=== PATIENT | female | born 1970 | race Caucasian/White ===

== ENCOUNTER → 2020-12-19 | Outpatient (CLI) | payer BC ==
--- NOTE | 2020-12-19 17:13 | CT ---
EXAMINATION TYPE: CT abdomen pelvis wo con DATE OF EXAM: 12/19/2020 COMPARISON: None available. HISTORY: LLQ pain CT DLP: 1175.7 mGycm Automated exposure control for dose reduction was used. TECHNIQUE: Helical acquisition of images was performed from the lung bases through the pelvis. FINDINGS: LUNG BASES: No significant abnormality is appreciated. LIVER/GB: No significant abnormality is appreciated. Cholecystectomy. PANCREAS: No significant abnormality is seen. SPLEEN: No significant abnormality is seen. ADRENALS: No significant abnormality is seen. KIDNEYS: No significant abnormality is seen. FREE AIR: No free air is visualized RETROPERITONEAL ADENOPATHY: None visualized REPRODUCTIVE ORGANS: No significant abnormality is seen URINARY BLADDER: No significant abnormality is seen. PELVIC ADENOPATHY: None visualized. OSSEOUS STRUCTURES: No significant abnormality is seen. BOWEL: No significant abnormality is seen. Gastric bypass. OTHER: None. IMPRESSION: NO ACUTE ABNORMALITY. PRIOR POSTSURGICAL CHANGES ABOVE.
== END | disposition home or self-care (01) ==
LOC: RADCTMAIN 16:40
PROVIDERS: ATTEND Nurse Practitioner Adult Health
DX: R10.32 Left lower quadrant pain (principal); Z98.84 Bariatric surgery status; Z90.49 Acquired absence of other specified parts of digestive tract
CPT/HCPCS: 74176

== ENCOUNTER → 2021-01-17 | Outpatient (CLI) | payer BC ==
--- NOTE | 2021-01-17 15:37 | US ---
EXAMINATION TYPE: US thyroid st tissue head/neck DATE OF EXAM: 01/17/2021 COMPARISON: NONE CLINICAL HISTORY: R09.89 Sensation of foreign body in throat. Patient states she feels something in h er throat. GLAND SIZE: Right Lobe: 4.6 x 1.7 x 1.2 cm Overall Parenchyma: homogenous Left Lobe: 4.7 x1.6 x 0.9 cm Overall Parenchyma: homogeneous Isthmus Thickness: 0.1 cm NODULES RIGHT: # of nodules measured on right: 0 LEFT: # of nodules measured on left: 1 1. 0.6 X 0.4 x 0.3 cm, upper , cystic or almost completely cystic, anechoic nodule, which is wider than tall, with smooth margins, without echogenic foci. Prior size: no prior ISTHMUS: # of nodules measured in the isthmus: 0 Bilateral neck scanned, no evidence of lymphadenopathy. IMPRESSION: Nonspecific subcentimeter nodule left thyroid lobe.
== END | disposition home or self-care (01) ==
LOC: RADUSWWP 12:48
PROVIDERS: ATTEND Family Medicine
DX: E04.1 Nontoxic single thyroid nodule (principal)
CPT/HCPCS: 76536

== ENCOUNTER → 2021-09-20 | Outpatient (CLI) | payer BC ==
[~2021-09-20] MED LIST: CASIRIVIMAB (REGN10933) (EUA) 600 MG, IMDEVIMAB (REGN10987) (EUA) 600 MG in SODIUM CHLO... IVPB ONE; SODIUM CHLORIDE 0.9% 50 ML IVPB ONE; SODIUM CHLORIDE 0.9% 500 ML 500 ML in EMPTY BAG 1 BAG IV PRN
[2021-09-20 14:11] VITALS: BP 126/67; PULSE 53; RESP 16; TEMP 98.3
== END ==
LOC: PROCWHC3 13:42
PROVIDERS: ATTEND Nurse Practitioner Adult Health
DX: U07.1 COVID-19 (principal); E66.9 Obesity, unspecified; Z68.35 Body mass index [BMI] 35.0-35.9, adult; F17.200 Nicotine dependence, unspecified, uncomplicated; Z88.0 Allergy status to penicillin
CPT/HCPCS: 96360; Q0243; M0243

== ENCOUNTER → 2022-05-29 | Outpatient (CLI) | payer BC ==
--- NOTE | 2022-05-29 16:45 | US ---
EXAMINATION TYPE: US thyroid st tissue head/neck DATE OF EXAM: 05/29/2022 COMPARISON: Prior thyroid ultrasound January 17, 2021 CLINICAL HISTORY: E04.1 Thyroid Nodule. f/u exam GLAND SIZE: Right Lobe: 4.9 x 1.4 x 1.5 cm Overall Parenchyma: homogenous Left Lobe: 4.5 x 1.1 x 1.4 cm Overall Parenchyma: homogeneous Isthmus Thickness: 0.2 cm NODULES RIGHT: # of nodules measured on right: 0 LEFT: # of nodules measured on left: 0 ISTHMUS: # of nodules measured in the isthmus: 0 Bilateral neck scanned, no evidence of lymphadenopathy. Heterogeneous normal-sized thyroid with likely stable near 5 mm cystic nodule posteriorly in the left thyroid lobe on image 25 and 26. IMPRESSION: As above. No new or enlarging greater than 5 mm solid nodules.
== END | disposition home or self-care (01) ==
LOC: RADMAMWWP 16:12
PROVIDERS: ATTEND Family Medicine
DX: Z12.31 Encounter for screening mammogram for malignant neoplasm of breast (principal); E04.1 Nontoxic single thyroid nodule
CPT/HCPCS: 76536; 77063; 77067

== ENCOUNTER → 2022-06-07 | Outpatient (CLI) | payer BC ==
[2022-06-07 12:04] LABS: ALT 19 U/L (8-44); AST 17 U/L (13-35); African American GFR (CKD) 119.8 (60.0-200.0); Albumin 4.3 g/dL (3.8-4.9); Albumin/Globulin Ratio 2.15 (1.60-3.17); Alkaline Phosphatase 89 U/L (41-126); Blood Urea Nitrogen 11.1 mg/dL (9.0-27.0); Calcium 9.4 mg/dL (8.7-10.3); Carbon Dioxide 29.2 mmol/L (20.0-27.5); Chloride 103 mmol/L (96-109); Chol/HDL Ratio 4.28 Ratio; Glucose 125 mg/dL (70-110); LDL Cholesterol,Calculated 117.9 mg/dL (0.0-131.0); Non-African American GFR(CKD) 103.3 (60.0-200.0); Potassium 4.6 mmol/L (3.5-5.5); Sodium 142 mmol/L (135-145); Total Protein 6.3 g/dL (6.2-8.2)
[2022-06-07 13:41] LABS: Basophils # (A) 0.03 X 10*3/uL (0.00-0.10); Basophils % (A) 0.4 %; Eosinophils # (A) 0 X 10*3/uL (0.04-0.35); Eosinophils % (A) 0 %; HCT 44.8 % (37.2-46.3); HGB 14.8 g/dL (12.0-15.0); Immature Grans, Automated 0.2 %; Lymphocytes # (A) 2.09 X 10*3/uL (0.90-5.00); Lymphocytes % (A) 25.9 %; MCH 29.7 pg (27.0-32.0); Mean Platelet Volume 11.1 fL (9.5-12.2); Monocytes % (A) 6.2 %; NRBC Per 100 WBC 0 /100 WBCS (0.0-0.0); Neutrophils # (A) 5.42 X 10*3/uL (1.80-7.70); Neutrophils % (A) 67.3 %; Platelet Count 235 X 10*3/uL (140-440); RBC 4.98 X 10*6/uL (4.10-5.20); RDW 12.6 % (11.5-14.5); WBC 8.06 X 10*3/uL (4.50-10.00)
== END | disposition home or self-care (01) ==
LOC: LABWHC1 07:59
PROVIDERS: ATTEND Family Medicine
DX: Z00.00 Encounter for general adult medical examination without abnormal findings (principal); Z13.1 Encounter for screening for diabetes mellitus
CPT/HCPCS: 36415; 80053; 80061; 83036; 84439; 84443; 85025

== ENCOUNTER 2023-04-21 18:00 | Emergency (ER) | payer BC ==
--- NOTE | 2023-04-21 18:07 | ED ---
General Adult HPI - General Source: RN notes reviewed <Gabby Browne - Last Filed: 04/21/23 18:07> - General Source: patient, RN notes reviewed Mode of arrival: ambulatory Limitations: no limitations - History of Present Illness MD Complaint: Left knee pain <Radha Ferrer - Last Filed: 04/22/23 03:40> - General Chief complaint: Extremity Injury, Lower Stated complaint: Lt knee pain Time Seen by Provider: 04/21/23 18:07 - History of Present Illness Initial comments: 53-year-old female with no significant past medical history presents to the emergency department with a chief complaint of left knee pain. (Gabby Browne) In addition to the information above, states that she was in the kitchen cooking dinner, when she went to pivot and felt a "pop" in her knee. She is still able to ambulate, but states she has felt increasing pain and swelling. She is taking ibuprofen and Tylenol with only minimal relief in symptoms. (Radha Ferrer) - Related Data Home Medications Medication Instructions Recorded Confirmed Multivitamins, Thera [Multivitamin 1 tab PO DAILY 05/23/16 05/23/16 (formulary)] Triamterene-Hctz 37.5-25Mg 1 tab PO DAILY 05/23/16 05/23/16 [Maxzide 37.5-25] buPROPion XL [Wellbutrin XL] 150 mg PO DAILY 05/23/16 05/23/16 Previous Rx's Medication Instructions Recorded Acetaminophen Tab [Tylenol] 650 mg PO Q6HR PRN #0 tab 05/24/16 HYDROcodone/APAP 5-325MG [S[place] 1 tab PO Q6HR PRN 3 Days #12 tab 04/21/23 5-325] Allergies Allergy/AdvReac Type Severity Reaction Status Date / Time Penicillins Allergy Rash/Hives Verified 04/21/23 18:15 Review of Systems ROS Other: All systems not noted in ROS Statement are negative. <Gabby Browne - Last Filed: 04/21/23 18:07> ROS Other: All systems not noted in ROS Statement are negative. <Radha Ferrer - Last Filed: 04/22/23 03:40> ROS Statement: Those systems with pertinent positive or pertinent negative responses have been documented in the HPI. Past Medical History Past Medical History: Chest Pain / Angina, Diabetes Mellitus, Hypertension, Pneumonia History of Any Multi-Drug Resistant Organisms: None Reported Past Surgical History: Bariatric Surgery, Hysterectomy Additional Past Surgical History / Comment(s): 2008 - gastric bypass. 2007 - hysterectomy Past Anesthesia/Blood Transfusion Reactions: No Reported Reaction Past Psychological History: No Psychological Hx Reported Smoking Status: Current every day smoker Past Alcohol Use History: Occasional Past Drug Use History: None Reported - Past Family History Father Family Medical History: Cancer Additional Family Medical History / Comment(s): leukemia. 1988 Mother Family Medical History: Diabetes Mellitus, Hypertension Additional Family Medical History / Comment(s): 1995 Brother(s) Family Medical History: Diabetes Mellitus Sister(s) Family Medical History: Cancer Additional Family Medical History / Comment(s): bladder ca Son(s) History Unknown: Yes <Gabby Browne - Last Filed: 04/21/23 18:07> General Exam <Gabby Browne - Last Filed: 04/21/23 18:07> Limitations: no limitations General appearance: alert, in no apparent distress Head exam: Present: atraumatic, normocephalic, normal inspection Respiratory exam: Present: normal lung sounds bilaterally. Absent: respiratory distress, wheezes, rales, rhonchi, stridor Cardiovascular Exam: Present: regular rate, normal rhythm, normal heart sounds. Absent: systolic murmur, diastolic murmur, rubs, gallop, clicks Extremities exam: Present: other (Minor swelling and tenderness to palpation of the left patella. Full active and passive ROM. 2+ DP and PT pulses. Negative anterior/posterior drawer test. Kenn's elicits pain.) Neurological exam: Present: alert, oriented X3, CN II-XII intact Psychiatric exam: Present: normal affect, normal mood Skin exam: Present: warm, dry, intact, normal color. Absent: rash <Radha Ferrer - Last Filed: 04/22/23 03:40> - General Exam Comments Initial Comments: Visual Physical Exam Vital signs reviewed General: Well-appearing, nontoxic, no acute distress. Head: Normocephalic, atraumatic Eyes: PERRLA, EOMI ENT: Airway patent Chest: Nonlabored breathing Skin: No visual rash, normal skin tone Neuro: Alert and oriented 3 Musculoskeletal: No gross abnormalities (Gabby Browne) Course Vital Signs 04/21/23 04/21/23 18:12 19:56 Temperature 97.6 F 98.5 F Pulse Rate 54 L 57 L Respiratory 20 20 Rate Blood Pressure 155/74 115/72 O2 Sat by Pulse 100 97 Oximetry Medical Decision Making - Radiology Data Radiology results: report reviewed, image reviewed <Radha Ferrer - Last Filed: 04/22/23 03:40> - Medical Decision Making This is a 53-year-old female who presents to the emergency department for left knee pain. Was pt. sent in by a medical professional or institution? @ -No Did you speak to anyone other than the patient for history? @ -No Did you review nursing and triage notes? @ -Yes, and I agree, it is accurate with regards to the patient's symptoms. Were old charts reviewed? @ -No Differential Diagnosis? @ -Differential Knee Injury: Fracture, dislocation, sprain, contusion, meniscus injury, ACL/LCL/MCL/PCL injury, this is not meant to be an all-inclusive list. EKG interpreted by me (3pts min.)? @ -Not obtained X-rays interpreted by me (1pt min.)? @ -X-ray of the left knee obtained. My interpretation identifies no acute fractures or dislocations. CT interpreted by me (1pt min.)? @ -Not obtained U/S interpreted by me (1pt. min.)? @ -Not obtained What testing was considered but not performed? (CT, X-rays, U/S, labs)? Why? @ -None What meds were considered but not given? Why? @ -None Did you discuss the management of the patient with other professionals? @ -No Did you reconcile home meds? @ -No Was smoking cessation discussed for >3mins.? @ -No Was critical care preformed (if so, how long)? @ -No Were there social determinants of health that impacted care today? How? (Homelessness, low income, unemployed, alcoholism, drug addiction, transportation, low edu. Level, literacy, decrease access to med. care, care home, rehab)? @ -No Was there de-escalation of care discussed even if they declined? (Discuss DNR or withdrawal of care, Hospice)? @ -No What co-morbidities impacted this encounter? (DM, HTN, Smoking, COPD, CAD, Cancer, CVA, Hep., AIDS, mental health diagnosis, sleep apnea, morbid obesity)? @ -Morbid obesity Was patient admitted / discharged? @ -Discharged. X-ray of the left knee obtained revealing a small joint effusion and soft tissue swelling. No acute fractures were present. She was still able to ambulate without difficulty and was found to be neurovascularly intact. Discussed that we cannot rule out the possibility of a ligamentous or meniscus injury. She was given a knee immobilizer. Given the lack of relief with ibuprofen and Tylenol, she was given a prescription for a short course of [place]. Advised she take this sparingly when her pain is the most severe and to avoid driving or operating machinery when taking this. Otherwise advised compression, elevating the leg, and applying ice. Information for orthopedic follow-up provided. She'll contact them for a follow-up appointment and reevaluation. Undiagnosed new problem with uncertain prognosis? @ -None Drug Therapy requiring intensive monitoring for toxicity (Heparin, Nitro, Insulin, Cardizem)? @ -None Were any procedures done? @ -None Diagnosis/symptom? @ -Left knee sprain Acute, or Chronic, or Acute on Chronic? @ -Acute Uncomplicated (without systemic symptoms) or Complicated (systemic symptoms)? @ -Uncomplicated Side effects of treatment? @ -None Exacerbation, Progression, or Severe Exacerbation] @ -Not applicable Poses a threat to life or bodily function? @ -No Return precautions reviewed in depth, the patient is instructed to return to the emergency department with any new, worsening, or concerning symptoms. Patient verbalized understanding. This case was discussed in detail with the attending ED physician, Dr. Billingsley. Presentation, findings, and treatment plan discussed in detail as well. (Radha Ferrer) Disposition <Gabby Browne - Last Filed: 04/21/23 18:07> Is patient prescribed a controlled substance at d/c from ED?: No <Radha Ferrer - Last Filed: 04/22/23 03:40> Clinical Impression: Left knee sprain Disposition: HOME SELF-CARE Instructions (If sedation given, give patient instructions): Knee Sprain (ED), Knee Pain (ED), Knee Immobilizer (ED) Additional Instructions: Return to the emergency department with any new, worsening, or concerning symptoms. Alternate with ibuprofen and Tylenol as needed for pain relief. You can either wrap the knee with an Tadeo bandage or use the knee immobilizer. Keep the leg elevated. You can also apply ice. Take the [place] sparingly when your pain is the most severe and be aware that it may make you drowsy and you should avoid driving or operating machinery when taking this. Contact orthopedics as listed below for a follow up appointment and reevaluation of symptoms. Prescriptions: HYDROcodone/APAP 5-325MG [S[place] 5-325] 1 tab PO Q6HR PRN 3 Days #12 tab PRN Reason: Pain Referrals: Iam Young MD [Primary Care Provider] - 1-2 days Charanjit Navarrete MD [Medical Doctor] - 1-2 days
[2023-04-21 18:14] VITALS: RESP 20
--- NOTE | 2023-04-21 18:44 | XR ---
EXAMINATION TYPE: XR knee complete LT DATE OF EXAM: 04/21/2023 CLINICAL HISTORY: pain TECHNIQUE: Three views of the left knee are obtained. COMPARISON: None. FINDINGS: There is no acute fracture/dislocation. The tri-compartment joint spaces appear within no rmal limits. There is evidence of infra prepatellar soft tissue swelling. Small joint effusion is not ed. IMPRESSION: There is no acute fracture or dislocation ICD 10 NO FRACTURE, INITIAL EVALUATION
[2023-04-21] MEDS ORDERED: IBUPROFEN 600 MG STARTER PACK 4 TAB BTL PO STA (19:30)
[2023-04-21] MEDS ORDERED: ACET/COD 300 MG/30 MG STARTER PACK 6 TAB BTL PO STA (19:30)
[2023-04-21 19:57] VITALS: BP 115/72; PULSE 57; TEMP 98.5
== END 2023-04-21 20:07 | disposition home or self-care (01) ==
LOC: EC 18:00
DX: S83.92XA Sprain of unspecified site of left knee, initial encounter (principal); E11.9 Type 2 diabetes mellitus without complications; I10 Essential (primary) hypertension; F17.200 Nicotine dependence, unspecified, uncomplicated; Z79.899 Other long term (current) drug therapy; Z88.0 Allergy status to penicillin; X58.XXXA Exposure to other specified factors, initial encounter
CPT/HCPCS: 73562; 99283; L1830

== ENCOUNTER → 2023-04-23 | Outpatient (CLI) | payer BC ==
--- NOTE | 2023-04-23 17:46 | US ---
EXAMINATION TYPE: US venous doppler duplex LE LT DATE OF EXAM: 04/23/2023 5:06 PM COMPARISON: NONE CLINICAL INDICATION: Female, 53 years old with history of I80.9PHLEBITIS AND THROMBOPHLEBITIS OF UNSP ECIFIED; Pain and swelling x 5 days. No hx of DVT. Patient is currently taking baby aspirin. SIDE PERFORMED: Left TECHNIQUE: The lower extremity deep venous system is examined utilizing real time linear array sonog daly with graded compression, doppler sonography and color-flow sonography. VESSELS IMAGED: Common Femoral Vein Deep Femoral Vein Greater Saphenous Vein * Femoral Vein Popliteal Vein Small Saphenous Vein * Proximal Calf Veins (* superficial vessels) Left Leg: No evidence of DVT. IMPRESSION: No evidence of DVT at this time.
== END | disposition home or self-care (01) ==
LOC: RADUSWWP 17:04
PROVIDERS: ATTEND Orthopaedic Surgery
DX: I80.9 Phlebitis and thrombophlebitis of unspecified site (principal); M23.8X2 Other internal derangements of left knee; M23.307 Other meniscus derangements, unspecified meniscus, left knee